=== PATIENT | male | born 1985 | race Caucasian/White ===

== ENCOUNTER 2021-10-14 18:37 | Emergency (ER) | payer MEDICAID ==
[2021-10-14] MEDS ORDERED: Ketorolac 30 MG/ML SDV IM ONE (18:59)
[2021-10-14] MEDS ORDERED: Ketorolac 30 MG/ML SDV IVPUSH ONE (19:55)
== END 2021-10-14 21:55 | disposition home or self-care (01) ==
LOC: JP.ED 18:37
DX: R07.89 Other chest pain (principal); K82.4 Cholesterolosis of gallbladder; I10 Essential (primary) hypertension; D72.829 Elevated white blood cell count, unspecified; F17.200 Nicotine dependence, unspecified, uncomplicated; Z88.2 Allergy status to sulfonamides
CPT/HCPCS: 36415; 71046; 71046-26; 76705; 76705-26; 80048; 80076; 84484; 85025; 93005; 93010; 96374; 99283; 99285-25; J1885

== ENCOUNTER 2021-11-06 13:35 | Emergency (ER) | payer MEDICAID ==
[2021-11-06 14:51] LABS: CORONAVIRUS COVID-19 NAA NEGATIVE (NEGATIVE)
[2021-11-06] MEDS ORDERED: Albuterol/Ipratropium 3.0-0.5 MG/3 ML Neb Soln NEB ONE (15:04)
[2021-11-06] MEDS ORDERED: Ibuprofen 600 MG Tab PO ONE (15:04)
== END 2021-11-06 16:37 | disposition home or self-care (01) ==
LOC: JP.ED 13:35
DX: B34.9 Viral infection, unspecified (principal); K21.9 Gastro-esophageal reflux disease without esophagitis; Z88.2 Allergy status to sulfonamides; Z79.899 Other long term (current) drug therapy; Z72.0 Tobacco use; Z20.822 Contact with and (suspected) exposure to COVID-19
CPT/HCPCS: 0241U; 36415; 71046; 71046-26; 80048; 83605; 84145; 85025; 94640; 99282; 99284-25; A9270-GY; J7620